=== PATIENT | male | born 1960 | race African-American/Black ===

== ENCOUNTER → 2016-08-22 | Outpatient (CLI) | payer MEDICARE, MEDICAID ==
[2016-08-22 11:09] LABS: ABSOLUTE EOSINOPHILS # (AUTO) 0.2 10^3/uL (0.0-0.6); ABSOLUTE LYMPHOCYTES (AUTO) 1.4 10^3/uL (0.5-4.7); ABSOLUTE MONOCYTES (AUTO) 0.8 10^3/uL (0.1-1.4); BASOPHILS % (AUTO) 0.8 % (0-2); HEMATOCRIT 39.2 % (37.9-51.0); HEMOGLOBIN 13.4 g/dL (13.5-17.0); MEAN CORPUSCULAR HEMOGLOBIN 32.5 pg (27.0-33.4); MEAN CORPUSCULAR HGB CONC 34.2 g/dL (32.0-36.0); MEAN CORPUSCULAR VOLUME 95 fl (80-97); MONOCYTES % (AUTO) 11.7 % (3-13); RED BLOOD COUNT 4.13 10^6/uL (4.35-5.55); RED CELL DISTRIBUTION WIDTH 16.1 % (11.5-14.0); SEGMENTED NEUTROPHILS % (AUTO) 62.5 % (42-78); WHITE BLOOD COUNT 6.4 10^3/uL (4.0-10.5)
[2016-08-22 12:00] LABS: ALANINE AMINOTRANSFERASE 27 U/L (21-72); ALBUMIN 4.4 g/dL (3.5-5.0); ALKALINE PHOSPHATASE 68 U/L (38-126); ANION GAP 17 (5-19); ASPARTATE AMINO TRANSFERASE 25 U/L (17-59); BLOOD UREA NITROGEN 19 mg/dL (7-20); CALCIUM 9.9 mg/dL (8.4-10.2); CARBON DIOXIDE 23 mmol/L (22-30); CHLORIDE 100 mmol/L (98-107); CHOLESTEROL 254.35 mg/dL (0-200); CREATININE RESULT 1.63 mg/dL (0.52-1.25); Direct HDL 67 mg/dL (>40); GLUCOSE 106 mg/dL (75-110); POTASSIUM 4.7 mmol/L (3.6-5.0); SODIUM 139.9 mmol/L (137-145); TOTAL PROTEIN 8.4 g/dL (6.3-8.2); TRIGLYCERIDES 112 mg/dL (<150)
[2016-08-22 12:10] LABS: DIRECT LDL 149 mg/dL (<100)
[2016-08-22 12:34] LABS: BILIRUBIN,TOTAL 0.8 mg/dL (0.2-1.3)
[2016-08-22 12:45] LABS: BILIRUBIN,DIRECT 0.5 mg/dL (0.0-0.4)
== END ==
LOC: OD 09:45
PROVIDERS: ATTEND Internal Medicine
DX: E78.2 Mixed hyperlipidemia (principal); Z13.1 Encounter for screening for diabetes mellitus; Z12.5 Encounter for screening for malignant neoplasm of prostate; E55.9 Vitamin D deficiency, unspecified; E66.9 Obesity, unspecified; Z79.899 Other long term (current) drug therapy
CPT/HCPCS: 36415; 82306; 84443; 85025; 80053; 80061; G0103

== ENCOUNTER → 2017-11-04 | Outpatient (CLI) | payer MEDICARE, MEDICAID ==
--- NOTE | 2017-11-04 15:44 | RADIOLOGY REPORT (SQ) ---
EXAM DESCRIPTION: U/S RETROPERITON (RENAL/AORTA) COMPLETED DATE/TIME: 11/04/2017 2:43 pm REASON FOR STUDY: N18.3 CHRONIC KIDNEY DISEASE, STAGE 3 (MODERATE) N18.3 CHRONIC KIDNEY DISEASE, ST AGE 3 (MODERATE) I12.9 HYPERTENSIVE CHRONIC KIDNEY DISEASE W STG 1-4/UNSP CHR COMPARISON: 03/03/2013 TECHNIQUE: Dynamic and static grayscale images acquired of the kidneys and bladder and recorded on P ACS. Additional selected color Doppler and spectral images recorded. LIMITATIONS: None. FINDINGS: RIGHT KIDNEY: The right kidney measures 10.6 cm, normal size. Normal echogenicity. No ap id or suspicious masses. No hydronephrosis. No calcifications. LEFT KIDNEY: Limited visualization of the left kidney. The left kidney measures 6.8 cm. On the tino or examination it measured 8.0 cm. Normal echogenicity. No solid or suspicious masses. No hydronephr osis. No calcifications. BLADDER: The urinary bladder is incompletely distended. Bilateral ureteral jets demonstrated. OTHER FINDINGS: No other significant finding. IMPRESSION: 1 The right kidney is stable in appearance since the prior examination dated 03/03/2013. No evidence hydronephrosis. 2 Limited visualization of the left kidney. The left kidney is smaller in size on the current examin ation when compared to the prior study, see above. TECHNICAL DOCUMENTATION: JOB ID: [id number] All Rights Reserved Reading location - IP/workstation name: [email or web address]
== END ==
LOC: RAD 17:14
PROVIDERS: ATTEND Internal Medicine Nephrology
DX: I12.9 Hypertensive chronic kidney disease with stage 1 through stage 4 chronic kidney disease, or unspecified chronic kidney disease (principal); N18.3 Chronic kidney disease, stage 3 (moderate)
CPT/HCPCS: 76770

== ENCOUNTER → 2017-11-19 | Outpatient (CLI) | payer MEDICARE, MEDICAID ==
[2017-11-19 13:50] LABS: ABSOLUTE EOSINOPHILS # (AUTO) 0.2 10^3/uL (0.0-0.6); ABSOLUTE LYMPHOCYTES (AUTO) 1.4 10^3/uL (0.5-4.7); ABSOLUTE MONOCYTES (AUTO) 0.9 10^3/uL (0.1-1.4); ABSOLUTE NEUT (AUTO) 4.4 10^3/uL (1.7-8.2); BASOPHILS % (AUTO) 0.6 % (0-2); EOSINOPHILS % (AUTO) 2.6 % (0-6); HEMATOCRIT 38.7 % (37.9-51.0); HEMOGLOBIN 13.1 g/dL (13.5-17.0); LYMPHOCYTES % (AUTO) 19.8 % (13-45); MEAN CORPUSCULAR HEMOGLOBIN 31.7 pg (27.0-33.4); MEAN CORPUSCULAR VOLUME 93 fl (80-97); MONOCYTES % (AUTO) 12.8 % (3-13); PLATELET COUNT 240 10^3/uL (150-450); RED BLOOD COUNT 4.14 10^6/uL (4.35-5.55); RED CELL DISTRIBUTION WIDTH 15.9 % (11.5-14.0); SEGMENTED NEUTROPHILS % (AUTO) 64.2 % (42-78); TOTAL CELLS COUNTED % (AUTO) 100 %; WHITE BLOOD COUNT 6.9 10^3/uL (4.0-10.5)
[2017-11-19 13:56] LABS: APPEARANCE,URINE SLIGHTLY-CLOUDY; BILIRUBIN,URINE NEGATIVE (NEGATIVE); COLOR,URINE YELLOW; GLUCOSE, URINE NEGATIVE (NEGATIVE); KETONES,URINE NEGATIVE (NEGATIVE); LEUKOCYTE ESTERASE,URINE NEGATIVE (NEGATIVE); NITRITE,URINE NEGATIVE (NEGATIVE); PROTEIN,URINE NEGATIVE (NEGATIVE); URINE SPECIFIC GRAVITY 1.003; UROBILINOGEN,URINE NEGATIVE mg/dL (<2.0)
[2017-11-19 13:59] LABS: ALANINE AMINOTRANSFERASE 32 U/L (21-72); ALBUMIN 4.6 g/dL (3.5-5.0); ALKALINE PHOSPHATASE 71 U/L (38-126); ANION GAP 16 (5-19); ASPARTATE AMINO TRANSFERASE 41 U/L (17-59); BILIRUBIN,DIRECT 0.3 mg/dL (0.0-0.4); BILIRUBIN,TOTAL 0.7 mg/dL (0.2-1.3); BLOOD UREA NITROGEN 12 mg/dL (7-20); CARBON DIOXIDE 25 mmol/L (22-30); CHLORIDE 98 mmol/L (98-107); GLUCOSE 91 mg/dL (75-110); POTASSIUM 4.4 mmol/L (3.6-5.0); SODIUM 139.2 mmol/L (137-145); TOTAL PROTEIN 8.5 g/dL (6.3-8.2)
== END ==
LOC: OD 13:19
PROVIDERS: ATTEND Internal Medicine Nephrology
DX: I12.9 Hypertensive chronic kidney disease with stage 1 through stage 4 chronic kidney disease, or unspecified chronic kidney disease (principal); N18.3 Chronic kidney disease, stage 3 (moderate)
CPT/HCPCS: 36415; 80053; 81001; 83735; 85025

== ENCOUNTER → 2018-01-24 | Outpatient (CLI) | payer MEDICARE, MEDICAID ==
[2018-01-24 14:40] LABS: HEMATOCRIT 43.3 % (37.9-51.0); HEMOGLOBIN 14.9 g/dL (13.5-17.0); MEAN CORPUSCULAR HEMOGLOBIN 32.4 pg (27.0-33.4); MEAN CORPUSCULAR HGB CONC 34.4 g/dL (32.0-36.0); MEAN CORPUSCULAR VOLUME 94 fl (80-97); PLATELET COUNT 253 10^3/uL (150-450); RED BLOOD COUNT 4.59 10^6/uL (4.35-5.55); RED CELL DISTRIBUTION WIDTH 15.5 % (11.5-14.0); WHITE BLOOD COUNT 5.7 10^3/uL (4.0-10.5)
[2018-01-24 15:01] LABS: APPEARANCE,URINE CLEAR; BILIRUBIN,URINE NEGATIVE (NEGATIVE); COLOR,URINE YELLOW; GLUCOSE, URINE 50 mg/dL (NEGATIVE); KETONES,URINE NEGATIVE (NEGATIVE); LEUKOCYTE ESTERASE,URINE TRACE (NEGATIVE); NITRITE,URINE NEGATIVE (NEGATIVE); PROTEIN,URINE NEGATIVE (NEGATIVE)
[2018-01-24 15:20] LABS: ANION GAP 10 (5-19); BLOOD UREA NITROGEN 11 mg/dL (7-20); CALCIUM 10.1 mg/dL (8.4-10.2); CARBON DIOXIDE 27 mmol/L (22-30); CHLORIDE 98 mmol/L (98-107); GLUCOSE 147 mg/dL (75-110); POTASSIUM 4.7 mmol/L (3.6-5.0); SODIUM 134.6 mmol/L (137-145)
== END ==
LOC: OD 13:49
PROVIDERS: ATTEND Internal Medicine Nephrology
DX: I12.9 Hypertensive chronic kidney disease with stage 1 through stage 4 chronic kidney disease, or unspecified chronic kidney disease (principal); N18.3 Chronic kidney disease, stage 3 (moderate)
CPT/HCPCS: 36415; 80048; 81001; 85027

== ENCOUNTER → 2018-07-24 | Outpatient (CLI) | payer MEDICARE, MEDICAID ==
[2018-07-24 12:32] LABS: HEMATOCRIT 39.7 % (37.9-51.0); HEMOGLOBIN 13.5 g/dL (13.5-17.0); MEAN CORPUSCULAR HEMOGLOBIN 31.8 pg (27.0-33.4); MEAN CORPUSCULAR VOLUME 94 fl (80-97); PLATELET COUNT 271 10^3/uL (150-450); RED BLOOD COUNT 4.24 10^6/uL (4.35-5.55); RED CELL DISTRIBUTION WIDTH 15.5 % (11.5-14.0); WHITE BLOOD COUNT 8.3 10^3/uL (4.0-10.5)
[2018-07-24 12:46] LABS: APPEARANCE,URINE CLEAR; BILIRUBIN,URINE NEGATIVE (NEGATIVE); COLOR,URINE YELLOW; GLUCOSE, URINE NEGATIVE (NEGATIVE); KETONES,URINE NEGATIVE (NEGATIVE); LEUKOCYTE ESTERASE,URINE NEGATIVE (NEGATIVE); NITRITE,URINE NEGATIVE (NEGATIVE); PROTEIN,URINE NEGATIVE (NEGATIVE); URINE SPECIFIC GRAVITY 1.017
[2018-07-24 13:00] LABS: ANION GAP 12 (5-19); BLOOD UREA NITROGEN 21 mg/dL (7-20); CALCIUM 10.3 mg/dL (8.4-10.2); CARBON DIOXIDE 24 mmol/L (22-30); CHLORIDE 101 mmol/L (98-107); GLUCOSE 98 mg/dL (75-110); POTASSIUM 4.7 mmol/L (3.6-5.0); SODIUM 137.4 mmol/L (137-145)
== END ==
LOC: OD 11:20
PROVIDERS: ATTEND Physician Assistant Medical
DX: I12.9 Hypertensive chronic kidney disease with stage 1 through stage 4 chronic kidney disease, or unspecified chronic kidney disease (principal); N18.3 Chronic kidney disease, stage 3 (moderate); E87.1 Hypo-osmolality and hyponatremia
CPT/HCPCS: 36415; 80048; 81001; 85027

== ENCOUNTER → 2019-01-29 | Outpatient (CLI) | payer MEDICARE, MEDICAID ==
[2019-01-29 11:20] LABS: ABSOLUTE BASOPHILS # (AUTO) 0.1 10^3/uL (0.0-0.2); ABSOLUTE EOSINOPHILS # (AUTO) 0.1 10^3/uL (0.0-0.6); ABSOLUTE LYMPHOCYTES (AUTO) 1.5 10^3/uL (0.5-4.7); ABSOLUTE MONOCYTES (AUTO) 0.6 10^3/uL (0.1-1.4); ABSOLUTE NEUT (AUTO) 3.9 10^3/uL (1.7-8.2); BASOPHILS % (AUTO) 0.9 % (0-2); EOSINOPHILS % (AUTO) 1.4 % (0-6); HEMATOCRIT 43.7 % (37.9-51.0); HEMOGLOBIN 14.7 g/dL (13.5-17.0); LYMPHOCYTES % (AUTO) 23.9 % (13-45); MEAN CORPUSCULAR HEMOGLOBIN 31.7 pg (27.0-33.4); MEAN CORPUSCULAR HGB CONC 33.7 g/dL (32.0-36.0); MEAN CORPUSCULAR VOLUME 94 fl (80-97); PLATELET COUNT 239 10^3/uL (150-450); RED BLOOD COUNT 4.64 10^6/uL (4.35-5.55); RED CELL DISTRIBUTION WIDTH 15.2 % (11.5-14.0); SEGMENTED NEUTROPHILS % (AUTO) 63.8 % (42-78); TOTAL CELLS COUNTED % (AUTO) 100 %; WHITE BLOOD COUNT 6.2 10^3/uL (4.0-10.5)
[2019-01-29 11:52] LABS: ALBUMIN 4.7 g/dL (3.5-5.0); ALKALINE PHOSPHATASE 61 U/L (38-126); ANION GAP 15 (5-19); ASPARTATE AMINO TRANSFERASE 24 U/L (17-59); BILIRUBIN,DIRECT 0.2 mg/dL (0.0-0.4); BILIRUBIN,TOTAL 0.5 mg/dL (0.2-1.3); BLOOD UREA NITROGEN 12 mg/dL (7-20); CALCIUM 10.2 mg/dL (8.4-10.2); CARBON DIOXIDE 23 mmol/L (22-30); CHLORIDE 99 mmol/L (98-107); CHOLESTEROL 156.43 mg/dL (0-200); GLUCOSE 98 mg/dL (75-110); POTASSIUM 5.1 mmol/L (3.6-5.0); TOTAL PROTEIN 8.3 g/dL (6.3-8.2); TRIGLYCERIDES 125 mg/dL (<150)
[2019-01-29 12:12] LABS: DIRECT LDL 81 mg/dL (<100)
[2019-01-30 10:45] LABS: PROSTATE SPECIFIC ANTIGEN 0.4 ng/mL (0.0-4.0); PSA % FREE 52.5 % (.); PSA FREE 0.21 ng/mL
== END ==
LOC: OD 10:19
PROVIDERS: ATTEND Internal Medicine
DX: I12.9 Hypertensive chronic kidney disease with stage 1 through stage 4 chronic kidney disease, or unspecified chronic kidney disease (principal); N18.3 Chronic kidney disease, stage 3 (moderate); E55.9 Vitamin D deficiency, unspecified; E78.5 Hyperlipidemia, unspecified; Z12.5 Encounter for screening for malignant neoplasm of prostate; E66.9 Obesity, unspecified
CPT/HCPCS: 36415; 80053; 80061; 82306; 84154; 84443; 85025

== ENCOUNTER → 2019-02-03 | Outpatient (CLI) | payer MEDICARE, MEDICAID ==
[2019-02-03 10:52] LABS: HEMATOCRIT 42.3 % (37.9-51.0); MEAN CORPUSCULAR HEMOGLOBIN 30.9 pg (27.0-33.4); MEAN CORPUSCULAR HGB CONC 33.1 g/dL (32.0-36.0); MEAN CORPUSCULAR VOLUME 93 fl (80-97); PLATELET COUNT 229 10^3/uL (150-450); RED BLOOD COUNT 4.53 10^6/uL (4.35-5.55); RED CELL DISTRIBUTION WIDTH 15.3 % (11.5-14.0); WHITE BLOOD COUNT 5.2 10^3/uL (4.0-10.5)
[2019-02-03 11:10] LABS: APPEARANCE,URINE CLEAR; BILIRUBIN,URINE NEGATIVE (NEGATIVE); COLOR,URINE YELLOW; GLUCOSE, URINE NEGATIVE (NEGATIVE); KETONES,URINE NEGATIVE (NEGATIVE); LEUKOCYTE ESTERASE,URINE NEGATIVE (NEGATIVE); NITRITE,URINE NEGATIVE (NEGATIVE); PROTEIN,URINE NEGATIVE (NEGATIVE); URINE SPECIFIC GRAVITY 1.008; UROBILINOGEN,URINE NEGATIVE mg/dL (<2.0)
[2019-02-03 11:43] LABS: ANION GAP 10 (5-19); BLOOD UREA NITROGEN 17 mg/dL (7-20); CALCIUM 10.3 mg/dL (8.4-10.2); CARBON DIOXIDE 27 mmol/L (22-30); CHLORIDE 98 mmol/L (98-107); GLUCOSE 105 mg/dL (75-110); PHOSPHORUS 4.4 mg/dL (2.5-4.5); POTASSIUM 5.5 mmol/L (3.6-5.0)
== END ==
LOC: OD 10:13
PROVIDERS: ATTEND Physician Assistant Medical
DX: N18.3 Chronic kidney disease, stage 3 (moderate) (principal); I12.9 Hypertensive chronic kidney disease with stage 1 through stage 4 chronic kidney disease, or unspecified chronic kidney disease; E83.51 Hypocalcemia; E87.5 Hyperkalemia; E87.1 Hypo-osmolality and hyponatremia
CPT/HCPCS: 36415; 80048; 81001; 83970; 84100; 84132; 85027

== ENCOUNTER 2019-05-28 09:44 | Emergency (ER) | payer MEDICARE, MEDICAID ==
[2019-05-28] MEDS ORDERED: TETRACAINE HCL 0.5% OPH SOLN 4 ML OS ONE (10:20)
--- NOTE | 2019-05-28 10:20 | ER Document Report ---
ED Medical Screen (RME) - General Chief Complaint: Eye Pain Stated Complaint: EYE PAIN Time Seen by Provider: 05/28/19 10:15 Primary Care Provider: VARUN BLUM PA-C [Primary Care Provider] - Follow up as needed Mode of Arrival: Ambulatory Information source: Patient Notes: 58-year-old male presented to ED for complaint of eye pain to the left eye. He states it started on Saturday he thought it was getting better but then he started getting much worse. He states it is burning and pain. He states he has not injured this eye. Smokes 1/2 pack a day drinks daily and no drugs. I have greeted and performed a rapid initial assessment of this patient. A comprehensive ED assessment and evaluation of the patient, analysis of test results and completion of medical decision making process will be conducted by an additional ED providers. TRAVEL OUTSIDE OF THE [place] IN LAST 30 DAYS: No - Related Data Allergies/Adverse Reactions: No Known Allergies Allergy (Unverified 07/05/11 07:31) Past Medical History - Past Medical History Cardiac Medical History: Reports: Hx Coronary Artery Disease, Hx Hypertension, Hx Heart Murmur Denies: Hx Atrial Fibrillation, Hx Congestive Heart Failure, Hx Heart Attack, Hx Hypercholesterolemia, Hx Peripheral Vascular Disease Pulmonary Medical History: Denies: Hx Tuberculosis Endocrine Medical History: Denies: Hx Diabetes Mellitus Type 2 Renal/ Medical History: Denies: Hx Peritoneal Dialysis Past Surgical History: Reports: Hx Cardiac Catheterization, Hx Cardiac Surgery - CABG in 2010, Hx Coronary Artery Bypass Graft, Hx Testicular Surgery, Hx Vascular Surgery - DVT removal. Denies: Hx Appendectomy, Hx Bowel Surgery, Hx Cholecystectomy, Hx Gastric Bypass Surgery, Hx Herniorrhaphy, Hx Pacemaker, Hx Tonsillectomy - Immunizations Immunizations up to date: No Hx Diphtheria, Pertussis, Tetanus Vaccination: Yes Physical Exam - Vital signs Vitals: Temp Pulse Resp BP Pulse Ox 97.8 F 87 16 143/89 H 98 05/28/19 09:46 05/28/19 09:46 05/28/19 09:46 05/28/19 09:46 05/28/19 09:46 Course - Vital Signs Vital signs: Temp Pulse Resp BP Pulse Ox 97.8 F 87 16 143/89 H 98 05/28/19 09:46 05/28/19 09:46 05/28/19 09:46 05/28/19 09:46 05/28/19 09:46 Doctor's Discharge - Discharge Referrals: VARUN BLUM PA-C [Primary Care Provider] - Follow up as needed
--- NOTE | 2019-05-28 13:17 | ER Document Report ---
ED General - General Chief Complaint: Redness of Eye Stated Complaint: EYE PAIN Time Seen by Provider: 05/28/19 10:15 Primary Care Provider: CHAU VENTURA OT [OPTHALMIC LOADER HELPER] - Follow up as needed JOSE ISABEL DO [ACTIVE STAFF] - Follow up as needed VARUN BLUM PA-C [Primary Care Provider] - Follow up as needed Mode of Arrival: Ambulatory Notes: 58-year male presents left eye redness and discomfort, without blurry vision with increased discharge, for several days. No trauma. No proptosis. No visual impairment or headache or fever. No history of eye issues. Patient is recently poor historian but based on conversation can obtain the above information. Seen at triage, ordered visual acuity. TRAVEL OUTSIDE OF THE [place] IN LAST 30 DAYS: No - Related Data Allergies/Adverse Reactions: No Known Allergies Allergy (Verified 05/28/19 10:17) Home Medications: xarelto, htn, hchol Past Medical History - General Information source: Patient - Social History Smoking Status: Current Every Day Smoker Chew tobacco use (# tins/day): No Frequency of alcohol use: daily Drug Abuse: None Family History: Reviewed & Not Pertinent, Malignancy Patient has suicidal ideation: No Patient has homicidal ideation: No - Past Medical History Cardiac Medical History: Reports: Hx Coronary Artery Disease, Hx Hypertension, Hx Heart Murmur Denies: Hx Atrial Fibrillation, Hx Congestive Heart Failure, Hx Heart Attack, Hx Hypercholesterolemia, Hx Peripheral Vascular Disease Pulmonary Medical History: Denies: Hx Tuberculosis Endocrine Medical History: Denies: Hx Diabetes Mellitus Type 2 Renal/ Medical History: Denies: Hx Peritoneal Dialysis Past Surgical History: Reports: Hx Cardiac Catheterization, Hx Cardiac Surgery - CABG in 2010, Hx Coronary Artery Bypass Graft, Hx Testicular Surgery, Hx Vascular Surgery - DVT removal. Denies: Hx Appendectomy, Hx Bowel Surgery, Hx Cholecystectomy, Hx Gastric Bypass Surgery, Hx Herniorrhaphy, Hx Pacemaker, Hx Tonsillectomy - Immunizations Immunizations up to date: No Hx Diphtheria, Pertussis, Tetanus Vaccination: Yes Hx Pneumococcal Vaccination: 04/22/10 Review of Systems - Review of Systems Notes: REVIEW OF SYSTEMS GEN: Denies fever, chills, weight loss ENT: Denies sore throat, nasal discharge, ear pain EYES: PI CV: Denies chest pain, palpitations, edema RESP: Denies cough, shortness of breath, wheezing GI: Denies abdominal pain, nausea, vomiting, diarrhea MSK: Denies joint pain/swelling, edema, SKIN: Denies rash, skin lesions LYMPH: Denies swollen glands/lymph nodes NEURO: Denies headache, focal weakness or numbness, dizziness PSYCH: Denies depression, suicidal or homicidal ideation PHYSICAL EXAMINATION General: No acute distress, well-nourished Head: Atraumatic, normocephalic ENT: Mouth normal, oropharynx moist, no exudates or tonsillar enlargement Eyes: Conjunctiva on the left with mild discharge, painless full extraocular movements no afferent pupillary defect, the eye is nontender to palpation Neck: No JVD, supple, no guarding CVS: Normal rate, regular rhythm, no murmurs Resp: No resp distress, equal and normal breath sounds bilaterally GI: Nondistended, soft, no tenderness to palpation, no rebound or guarding Ext: No deformities, no edema, normal range of motion in upper and lower ext Back: No CVA or midline TTP Skin: No rash, warm Lymphatic: No lymphadeopathy noted Neuro: Awake, alert. Face symmetric. GCS 15. Physical Exam - Vital signs Vitals: Temp Pulse Resp BP Pulse Ox 97.8 F 87 16 143/89 H 98 05/28/19 09:46 05/28/19 09:46 05/28/19 09:46 05/28/19 09:46 05/28/19 09:46 - HEENT Visual acuity- Right eye: 20/20 Visual acuity- Left eye: 20/20 Visual acuity- Both eyes: 20/20 Corrective lenses worn: No Course - Re-evaluation Re-evalutation: 05/28/19 14:04 Eye redness with intact range of motion normal cornea. Patient intolerant of Franki-Pen I tried several times and cannot measure his pressure but he has no proptosis or history of glaucoma His pain improved with drops but he has no uptake of fluorescein given to treat conjunctivitis although there may be a more underlying issue and he will be referred to ophthalmology expeditiously. I have discussed with the patient there likely diagnosis, aftercare plan, follow-up plans and my usual and customary return precautions. They verbalized understanding of this. - Vital Signs Vital signs: Temp Pulse Resp BP Pulse Ox 97.8 F 87 16 143/89 H 98 05/28/19 09:46 05/28/19 09:46 05/28/19 09:46 05/28/19 09:46 05/28/19 09:46 Discharge - Discharge Clinical Impression: Conjunctivitis Qualifiers: Conjunctivitis type: other Laterality: left Qualified Code(s): H10.89 - Other conjunctivitis Condition: Good Disposition: HOME, SELF-CARE Instructions: Antibiotic Therapy ([facility]), Conjunctivitis ([facility]) Prescriptions: Polymyxin B Sulf/Trimethoprim [Polytrim Eye Drops] 1 drop OD Q3H #10 ml Referrals: VARUN BLUM PA-C [Primary Care Provider] - Follow up as needed CHAU VENTURA OT [OPTHALMIC LOADER HELPER] - Follow up as needed JOSE ISABEL DO [ACTIVE STAFF] - Follow up as needed
[2019-05-28 14:24] VITALS: BP 128/82
== END 2019-05-28 14:25 | disposition home or self-care (01) ==
LOC: ER 09:44
DX: H10.89 Other conjunctivitis (principal); F17.200 Nicotine dependence, unspecified, uncomplicated; I25.10 Atherosclerotic heart disease of native coronary artery without angina pectoris; I10 Essential (primary) hypertension; Z95.1 Presence of aortocoronary bypass graft
CPT/HCPCS: J3490

== ENCOUNTER → 2019-09-29 | Outpatient (CLI) | payer MEDICARE, MEDICAID ==
[2019-09-29 13:54] LABS: ABSOLUTE EOSINOPHILS # (AUTO) 0.1 10^3/uL (0.0-0.6); ABSOLUTE LYMPHOCYTES (AUTO) 1.3 10^3/uL (0.5-4.7); ABSOLUTE MONOCYTES (AUTO) 0.8 10^3/uL (0.1-1.4); BASOPHILS % (AUTO) 0.7 % (0-2); EOSINOPHILS % (AUTO) 1.7 % (0-6); HEMATOCRIT 38.2 % (37.9-51.0); HEMOGLOBIN 13.1 g/dL (13.5-17.0); LYMPHOCYTES % (AUTO) 20.4 % (13-45); MEAN CORPUSCULAR HEMOGLOBIN 32.5 pg (27.0-33.4); MEAN CORPUSCULAR HGB CONC 34.3 g/dL (32.0-36.0); MEAN CORPUSCULAR VOLUME 95 fl (80-97); MONOCYTES % (AUTO) 12.9 % (3-13); PLATELET COUNT 257 10^3/uL (150-450); RED BLOOD COUNT 4.04 10^6/uL (4.35-5.55); RED CELL DISTRIBUTION WIDTH 15.2 % (11.5-14.0); SEGMENTED NEUTROPHILS % (AUTO) 64.3 % (42-78); TOTAL CELLS COUNTED % (AUTO) 100 %; WHITE BLOOD COUNT 6.2 10^3/uL (4.0-10.5)
[2019-09-29 13:57] LABS: APPEARANCE,URINE CLEAR; BILIRUBIN,URINE NEGATIVE (NEGATIVE); COLOR,URINE YELLOW; GLUCOSE, URINE NEGATIVE (NEGATIVE); KETONES,URINE NEGATIVE (NEGATIVE); LEUKOCYTE ESTERASE,URINE NEGATIVE (NEGATIVE); NITRITE,URINE NEGATIVE (NEGATIVE); PROTEIN,URINE NEGATIVE (NEGATIVE); UROBILINOGEN,URINE NEGATIVE mg/dL (<2.0)
[2019-09-29 14:14] LABS: ALBUMIN 4.6 g/dL (3.5-5.0); ANION GAP 10 (5-19); BLOOD UREA NITROGEN 17 mg/dL (7-20); CALCIUM 9.6 mg/dL (8.4-10.2); CARBON DIOXIDE 25 mmol/L (22-30); CHLORIDE 92 mmol/L (98-107); GLUCOSE 97 mg/dL (75-110); PHOSPHORUS 4.1 mg/dL (2.5-4.5); POTASSIUM 4.7 mmol/L (3.6-5.0)
== END ==
LOC: OD 13:27
PROVIDERS: ATTEND Physician Assistant Medical
DX: I12.9 Hypertensive chronic kidney disease with stage 1 through stage 4 chronic kidney disease, or unspecified chronic kidney disease (principal); N18.3 Chronic kidney disease, stage 3 (moderate); E87.1 Hypo-osmolality and hyponatremia; E83.52 Hypercalcemia
CPT/HCPCS: 36415; 80069; 81001; 83970; 85025

== ENCOUNTER 2019-09-30 16:12 | Observation (INO) | payer MEDICARE, MEDICAID ==
--- NOTE | 2019-09-30 17:21 | ER Document Report ---
ED Medical Screen (RME) - General Chief Complaint: Weakness Stated Complaint: WEAKNESS Time Seen by Provider: 09/30/19 17:16 Primary Care Provider: VARUN BLUM PA-C [Primary Care Provider] - Follow up as needed Mode of Arrival: Ambulatory Information source: Patient Notes: 59-year-old male presented to ED per MDs return instructions. He states they were told him that he had a low sodium and need to come her to the emergency room. He is alert oriented respirations regular and unlabored speaking in full sentences. He does have a history of kidney problems and [place] with coronary artery disease. He has had a CABG in the past. He does have high blood pressure and cholesterol. He had knee surgery for fractured patella and has had blood clots in both legs. He is alert oriented respirations regular and unlabored speaking in full sentences. States he does not use any illicit drugs but he does smoke 1/2 pack a day and drinks beer several a day. I have greeted and performed a rapid initial assessment of this patient. A comprehensive ED assessment and evaluation of the patient, analysis of test results and completion of medical decision making process will be conducted by an additional ED providers. TRAVEL OUTSIDE OF THE [place] IN LAST 30 DAYS: No - Related Data Allergies/Adverse Reactions: No Known Allergies Allergy (Verified 05/28/19 10:17) Past Medical History - Past Medical History Cardiac Medical History: Reports: Hx Coronary Artery Disease, Hx Hypertension, Hx Heart Murmur Denies: Hx Atrial Fibrillation, Hx Congestive Heart Failure, Hx Heart Attack, Hx Hypercholesterolemia, Hx Peripheral Vascular Disease Pulmonary Medical History: Denies: Hx Tuberculosis Endocrine Medical History: Denies: Hx Diabetes Mellitus Type 2 Renal/ Medical History: Denies: Hx Peritoneal Dialysis Past Surgical History: Reports: Hx Cardiac Catheterization, Hx Cardiac Surgery - CABG in 2010, Hx Coronary Artery Bypass Graft, Hx Testicular Surgery, Hx Vascular Surgery - DVT removal. Denies: Hx Appendectomy, Hx Bowel Surgery, Hx Cholecystectomy, Hx Gastric Bypass Surgery, Hx Herniorrhaphy, Hx Pacemaker, Hx Tonsillectomy - Immunizations Immunizations up to date: No Hx Diphtheria, Pertussis, Tetanus Vaccination: Yes Physical Exam - Vital signs Vitals: Temp Pulse Resp BP Pulse Ox 97.9 F 77 16 132/82 H 100 09/30/19 16:17 09/30/19 16:17 09/30/19 16:17 09/30/19 16:17 09/30/19 16:17 Course - Vital Signs Vital signs: Temp Pulse Resp BP Pulse Ox 97.9 F 77 16 132/82 H 100 09/30/19 16:17 09/30/19 16:17 09/30/19 16:17 09/30/19 16:17 09/30/19 16:17 Doctor's Discharge - Discharge Referrals: VARUN BLUM PA-C [Primary Care Provider] - Follow up as needed
[2019-09-30 18:25] LABS: APPEARANCE,URINE CLEAR; BILIRUBIN,URINE NEGATIVE (NEGATIVE); COLOR,URINE STRAW; GLUCOSE, URINE NEGATIVE (NEGATIVE); KETONES,URINE NEGATIVE (NEGATIVE); LEUKOCYTE ESTERASE,URINE NEGATIVE (NEGATIVE); NITRITE,URINE NEGATIVE (NEGATIVE); PROTEIN,URINE NEGATIVE (NEGATIVE); URINE SPECIFIC GRAVITY 1.005; UROBILINOGEN,URINE NEGATIVE mg/dL (<2.0)
[2019-09-30 18:44] LABS: ALBUMIN 4.6 g/dL (3.5-5.0); ALKALINE PHOSPHATASE 49 U/L (38-126); ANION GAP 14 (5-19); ASPARTATE AMINO TRANSFERASE 28 U/L (17-59); BILIRUBIN,TOTAL 0.6 mg/dL (0.2-1.3); BLOOD UREA NITROGEN 15 mg/dL (7-20); CALCIUM 9.5 mg/dL (8.4-10.2); CARBON DIOXIDE 21 mmol/L (22-30); CHLORIDE 90 mmol/L (98-107); GLUCOSE 77 mg/dL (75-110); POTASSIUM 4.3 mmol/L (3.6-5.0); TOTAL PROTEIN 8.3 g/dL (6.3-8.2)
[2019-09-30] MEDS ORDERED: NORMAL SALINE 1000 ML 1,000 ML IV ONE (20:19)
--- NOTE | 2019-09-30 20:24 | ER Document Report ---
ED General - General Chief Complaint: Abnormal Lab Results Stated Complaint: WEAKNESS Time Seen by Provider: 09/30/19 17:16 Primary Care Provider: VARUN BLUM PA-C [Primary Care Provider] - Follow up as needed Mode of Arrival: Ambulatory Notes: Patient is a 59-year-old -[place] male with a past medical history of DVT, hypertension and chronic kidney disease who was sent here by his assistant professor of education for low sodium. Patient states he is asymptomatic. He had routine blood work 2 days ago that showed a sodium of 126. He was sent here for evaluation and repeat. Patient denies any history of low sodium. TRAVEL OUTSIDE OF THE [place] IN LAST 30 DAYS: No - Related Data Allergies/Adverse Reactions: No Known Allergies Allergy (Verified 09/30/19 17:20) Past Medical History - General Information source: Patient - Social History Smoking Status: Current Every Day Smoker Frequency of alcohol use: Heavy Drug Abuse: None Family History: Reviewed & Not Pertinent, Malignancy Patient has homicidal ideation: No - Past Medical History Cardiac Medical History: Reports: Hx Coronary Artery Disease, Hx Hypertension, Hx Heart Murmur Denies: Hx Atrial Fibrillation, Hx Congestive Heart Failure, Hx Heart Attack, Hx Hypercholesterolemia, Hx Peripheral Vascular Disease Pulmonary Medical History: Denies: Hx Tuberculosis Endocrine Medical History: Denies: Hx Diabetes Mellitus Type 2 Renal/ Medical History: Denies: Hx Peritoneal Dialysis Past Surgical History: Reports: Hx Cardiac Catheterization, Hx Cardiac Surgery - CABG in 2010, Hx Coronary Artery Bypass Graft, Hx Testicular Surgery, Hx Vascular Surgery - DVT removal. Denies: Hx Appendectomy, Hx Bowel Surgery, Hx Cholecystectomy, Hx Gastric Bypass Surgery, Hx Herniorrhaphy, Hx Pacemaker, Hx Tonsillectomy - Immunizations Immunizations up to date: No Hx Diphtheria, Pertussis, Tetanus Vaccination: Yes Hx Pneumococcal Vaccination: 04/22/10 Review of Systems - Review of Systems Constitutional: No symptoms reported EENT: No symptoms reported Cardiovascular: No symptoms reported Respiratory: No symptoms reported Gastrointestinal: No symptoms reported Genitourinary: No symptoms reported Male Genitourinary: No symptoms reported Musculoskeletal: No symptoms reported Skin: No symptoms reported Neurological/Psychological: No symptoms reported Physical Exam - Vital signs Vitals: Temp 97.9 F 09/30/19 16:13 - General General appearance: Appears well, Alert In distress: None - HEENT Head: Normocephalic, Atraumatic Eyes: Normal Pupils: PERRL - Respiratory Respiratory status: No respiratory distress Chest status: Nontender Breath sounds: Normal Chest palpation: Normal - Cardiovascular Rhythm: Regular Heart sounds: Normal auscultation - Abdominal Inspection: Normal Distension: No distension Bowel sounds: Normal Tenderness: Nontender Organomegaly: No organomegaly - Extremities General upper extremity: Nontender. No: Tender, Edema General lower extremity: Normal inspection, Nontender. No: Tender, Edema - Neurological Neuro grossly intact: Yes Cognition: Normal Orientation: AAOx4 [place] Coma Scale Eye Opening: Spontaneous Vanda Coma Scale Verbal: Oriented Vanda Coma Scale Motor: Obeys Commands Vanda Coma Scale Total: 15 Speech: Normal Motor strength normal: LUE, RUE, LLE, RLE Sensory: Normal - Psychological Associated symptoms: Normal affect, Normal mood - Skin Skin Temperature: Warm Skin Moisture: Dry Skin Color: Normal Course - Re-evaluation Re-evalutation: 09/30/19 23:12 Patient admitted to some mild fatigue/generalized weakness. Is otherwise stable. Tolerating oral intake well. Sodium was minimally responsive to fluids. Spoke with hospitalist, Dr. Landis who will admit the patient for observation on telemetry. - Vital Signs Vital signs: Temp Pulse Resp BP Pulse Ox 97.9 F 77 15 130/75 H 100 09/30/19 16:17 09/30/19 16:17 09/30/19 19:52 09/30/19 19:53 09/30/19 19:53 - Laboratory Result Diagrams: 09/30/19 19:52 09/30/19 21:52 Laboratory results interpreted by me: 09/30/19 09/30/19 09/30/19 17:55 19:52 21:52 RBC 3.72 L Hgb 12.1 L Hct 35.3 L RDW 14.8 H Sodium 124.7 L 126.0 L Chloride 90 L 94 L Carbon Dioxide 21 L Creatinine 1.36 H 1.31 H Est GFR (MDRD) Non-Af 53 L 56 L Glucose 68 L Total Protein 8.3 H Discharge - Discharge Clinical Impression: Hyponatremia, Generalized weakness Condition: Stable Disposition: ADMITTED OBSERVATION Admitting Provider: Boby (Hospitalist) Unit Admitted: Telemetry Referrals: VARUN BLUM PA-C [Primary Care Provider] - Follow up as needed
[2019-09-30 20:53] LABS: ABSOLUTE EOSINOPHILS # (AUTO) 0.1 10^3/uL (0.0-0.6); ABSOLUTE LYMPHOCYTES (AUTO) 1.6 10^3/uL (0.5-4.7); ABSOLUTE MONOCYTES (AUTO) 0.7 10^3/uL (0.1-1.4); ABSOLUTE NEUT (AUTO) 3.8 10^3/uL (1.7-8.2); BASOPHILS % (AUTO) 0.5 % (0-2); HEMATOCRIT 35.3 % (37.9-51.0); HEMOGLOBIN 12.1 g/dL (13.5-17.0); LYMPHOCYTES % (AUTO) 26.1 % (13-45); MEAN CORPUSCULAR HEMOGLOBIN 32.5 pg (27.0-33.4); MEAN CORPUSCULAR HGB CONC 34.3 g/dL (32.0-36.0); MEAN CORPUSCULAR VOLUME 95 fl (80-97); MONOCYTES % (AUTO) 11.3 % (3-13); PLATELET COUNT 228 10^3/uL (150-450); RED BLOOD COUNT 3.72 10^6/uL (4.35-5.55); RED CELL DISTRIBUTION WIDTH 14.8 % (11.5-14.0); SEGMENTED NEUTROPHILS % (AUTO) 60.1 % (42-78); TOTAL CELLS COUNTED % (AUTO) 100 %; WHITE BLOOD COUNT 6.3 10^3/uL (4.0-10.5)
[2019-09-30 22:22] LABS: ANION GAP 9 (5-19); BLOOD UREA NITROGEN 13 mg/dL (7-20); CALCIUM 8.8 mg/dL (8.4-10.2); CARBON DIOXIDE 23 mmol/L (22-30); CHLORIDE 94 mmol/L (98-107); POTASSIUM 3.8 mmol/L (3.6-5.0)
[2019-09-30 22:28] LABS: GLUCOSE 68 mg/dL (75-110)
[2019-09-30] MEDS ORDERED: ACETAMINOPHEN 325 MG TABLET PO PRN (23:13)
[2019-09-30] MEDS ORDERED: MAG HYDROX/AL HYDROX/SIMETH SUSP 30 ML UDCUP PO PRN (23:13)
[2019-09-30] MEDS ORDERED: DEXTROSE 40% GEL 15 GM TUBE PO PRN ×2 (23:55)
[2019-09-30] MEDS ORDERED: DEXTROSE 50%-WATER 25 GM/50 ML DISP.SYRIN IV PRN ×2 (23:55)
[2019-09-30] MEDS ORDERED: GLUCAGON,HUMAN RECOMB 1 MG INJ IM PRN (23:55)
[2019-09-30] MEDS ORDERED: LORAZEPAM INJ 2 MG/1 ML VIAL IV PRN (23:56)
[2019-10-01] MEDS ORDERED: THIAMINE HCL INJ 200 MG/2 ML VIAL IV PRN (00:18)
[2019-10-01] MEDS ORDERED: FOLIC ACID INJ 5 MG/1 ML 10 ML VIAL IV PRN (00:18)
[2019-10-01] MEDS ORDERED: THIAMINE HCL 100 MG, FOLIC ACID 1 MG in NORMAL SALINE 250 ML IV ONE (00:30)
[2019-10-01] MEDS ORDERED: FOLIC ACID INJ 5 MG/1 ML 10 ML VIAL ONE (02:08)
[2019-10-01] MEDS ORDERED: THIAMINE HCL INJ 200 MG/2 ML VIAL ONE (02:09)
--- NOTE | 2019-10-01 04:29 | PDOC H&P ---
History of Present Illness Admission Date/PCP: 09/30/19 22:35 VARUN BLUM PA-C Patient complains of: Weakness and abnormal labs History of Present Illness: CALEB ALEX is a 59 year old male with a past medical history of coronary artery disease status post bypass graft, dyslipidemia, chronic anticoagulation, hypertension, tobacco and alcohol dependence. He presents to the emergency department referred by primary care for abnormal labs with a sodium of 126. Patient endorses generalized weakness but denies nausea vomiting headache blurred vision. Patient admits to excessive beer intake of between 6 and 824 ounce beers per day. He denies a history of alcohol withdrawal or tremor but he cannot recall his last abstinence greater than 24 hours. He denies recent change in medication regiment and is otherwise felt unchanged. Past Medical History Cardiac Medical History: Reports: Congestive Heart Failure, Coronary Artery Disease, Hypertension, Heart Murmur Denies: Atrial Fibrillation, Myocardial Infarction, Hyperlipidema, Peripheral Vascular Disease Pulmonary Medical History: Denies: Tuberculosis Endocrine Medical History: Denies: Diabetes Mellitus Type 2 Malignancy Medical History: Denies: Breast Cancer, Cervical Cancer, Ovarian Cancer Psychiatric Medical History: Reports: Alcohol Dependency, Tobacco Dependency Past Surgical History Past Surgical History: Reports: Cardiac Catheterization, Coronary Artery Bypass Graft, Vascular Surgery - DVT removal Denies: Appendectomy, Cholecystectomy, Gastric Bypass Surgery, Herniorrhaphy, Pacemaker, Tonsillectomy Social History Information Source: Patient Smoking Status: Current Every Day Smoker Frequency of Alcohol Use: Heavy Hx Recreational Drug Use: No Hx Prescription Drug Abuse: No - Advance Directive Resuscitation Status: Full Code Family History Family History: Malignancy Parental Family History Reviewed: Yes Children Family History Reviewed: Yes Sibling(s) Family History Reviewed.: Yes Medication/Allergy Home Medications: Atorvastatin Calcium [Lipitor 40 mg Tablet] 40 mg PO DAILY 05/10/11 Zolpidem Tartrate [Ambien 10 mg Tablet] 10 mg PO QHS 05/10/11 Acetaminophen [Tylenol 325 mg Tablet] 325 mg PO ASDIR PRN 10/20/18 Losartan Potassium [Cozaar 50 mg Tablet] 50 mg PO DAILY 10/20/18 Oxycodone HCl/Acetaminophen [Percocet 5-325 mg Tablet] 1 tab PO BIDP PRN 10/20/18 Rivaroxaban [Xarelto] 20 mg PO DAILY 10/20/18 Polymyxin B Sulf/Trimethoprim [Polytrim Eye Drops] 1 drop OD Q3H #10 ml 05/28/19 Allergies/Adverse Reactions: No Known Allergies Allergy (Verified 09/30/19 17:20) Review of Systems Constitutional: ABSENT: chills, fever(s), headache(s), weight gain, weight loss Eyes: ABSENT: visual disturbances Ears: ABSENT: hearing changes Cardiovascular: ABSENT: chest pain, dyspnea on exertion, edema, orthropnea, palpitations Respiratory: ABSENT: cough, hemoptysis Gastrointestinal: ABSENT: abdominal pain, constipation, diarrhea, hematemesis, hematochezia, nausea, vomiting Genitourinary: ABSENT: dysuria, hematuria Musculoskeletal: ABSENT: joint swelling Integumentary: ABSENT: rash, wounds Neurological: ABSENT: abnormal gait, abnormal speech, confusion, dizziness, focal weakness, syncope Psychiatric: ABSENT: anxiety, depression, homidical ideation, suicidal ideation Endocrine: ABSENT: cold intolerance, heat intolerance, polydipsia, polyuria Hematologic/Lymphatic: ABSENT: easy bleeding, easy bruising Physical Exam Vital Signs: Temp Pulse Resp BP Pulse Ox 98.1 F 88 16 124/79 97 10/01/19 01:10 10/01/19 01:10 10/01/19 01:10 10/01/19 01:10 10/01/19 01:10 Intake & Output 09/29/19 09/30/19 10/01/19 11:59 11:59 11:59 Intake Total 1251.2 Balance 1251.2 Weight 60.6 kg General appearance: PRESENT: cooperative, thin, well-developed. ABSENT: well- nourished Exam: Temporal wasting and global muscular atrophy Head exam: PRESENT: atraumatic, normocephalic Eye exam: PRESENT: conjunctiva pink, EOMI, PERRLA. ABSENT: scleral icterus Ear exam: PRESENT: normal external ear exam Mouth exam: PRESENT: moist, tongue midline Neck exam: ABSENT: carotid bruit, JVD, lymphadenopathy, thyromegaly Respiratory exam: PRESENT: clear to auscultation sarahy. ABSENT: rales, rhonchi, wheezes Cardiovascular exam: PRESENT: RRR, systolic murmur. ABSENT: diastolic murmur, rubs Pulses: PRESENT: normal dorsalis pedis pul Vascular exam: PRESENT: normal capillary refill GI/Abdominal exam: PRESENT: normal bowel sounds, soft. ABSENT: distended, guarding, mass, organolmegaly, rebound, tenderness Rectal exam: PRESENT: deferred Extremities exam: PRESENT: full ROM. ABSENT: calf tenderness, clubbing, pedal edema Neurological exam: PRESENT: alert, awake, oriented to person, oriented to place, oriented to time, oriented to situation, CN II-XII grossly intact. ABSENT: motor sensory deficit Psychiatric exam: PRESENT: flat affect, unusual affect Skin exam: PRESENT: dry, intact, warm. ABSENT: cyanosis, rash Results Laboratory Results: 09/30/19 19:52 09/30/19 21:52 09/30/19 09/30/19 09/30/19 17:46 17:55 19:52 WBC 6.3 RBC 3.72 L Hgb 12.1 L Hct 35.3 L MCV 95 MCH 32.5 MCHC 34.3 RDW 14.8 H Plt Count 228 Seg Neutrophils % 60.1 Sodium 124.7 L Potassium 4.3 Chloride 90 L Carbon Dioxide 21 L Anion Gap 14 BUN 15 Creatinine 1.36 H Est GFR ( Amer) > 60 Glucose 77 Calcium 9.5 Total Bilirubin 0.6 AST 28 Alkaline Phosphatase 49 Total Protein 8.3 H Albumin 4.6 Lipase 90.6 TSH Urine Color STRAW Urine Appearance CLEAR Urine pH 5.0 Ur Specific Coleman 1.005 Urine Protein NEGATIVE Urine Glucose (UA) NEGATIVE Urine Ketones NEGATIVE Urine Blood NEGATIVE Urine Nitrite NEGATIVE Ur Leukocyte Esterase NEGATIVE Urine WBC (Auto) 1 Urine RBC (Auto) 0 09/30/19 09/30/19 21:52 21:52 WBC RBC Hgb Hct MCV MCH MCHC RDW Plt Count Seg Neutrophils % Sodium 126.0 L Potassium 3.8 Chloride 94 L Carbon Dioxide 23 Anion Gap 9 BUN 13 Creatinine 1.31 H Est GFR ( Amer) > 60 Glucose 68 L Calcium 8.8 Total Bilirubin AST Alkaline Phosphatase Total Protein Albumin Lipase TSH 2.06 Urine Color Urine Appearance Urine pH Ur Specific Coleman Urine Protein Urine Glucose (UA) Urine Ketones Urine Blood Urine Nitrite Ur Leukocyte Esterase Urine WBC (Auto) Urine RBC (Auto) 09/30/19 21:52 NT-Pro-B Natriuret Pep 127 H Assessment and Plan - Diagnosis (1) Hyponatremia Is this a current diagnosis for this admission?: Yes Plan: Most likely secondary to beer Potomania, fluid restriction initiated. Follow-up serial chemistry every 8 hours. Goal correction maximum 136 in 24 hours (2) Generalized weakness Is this a current diagnosis for this admission?: Yes Plan: Likely secondary to general deconditioning. (3) Coronary artery disease Is this a current diagnosis for this admission?: Yes Plan: Telemetry monitoring, continue outpatient regiment (4) Alcohol dependence Is this a current diagnosis for this admission?: Yes Plan: Thiamine, folate, Valium and Ativan as needed, consider referral to outpatient rehab. Flat affect. Stating he just does not want to stay the night. Patient adamantly denies depression, suicidal or homicidal ideation. - Time Time Spent with patient: 25-34 minutes - Inpatient Certification Medical Necessity: Need Close Monitoring Due to Risk of Patient Decompensation
[2019-10-01 05:40] LABS: ANION GAP 7 (5-19); BLOOD UREA NITROGEN 14 mg/dL (7-20); CALCIUM 9.4 mg/dL (8.4-10.2); CARBON DIOXIDE 28 mmol/L (22-30); CHLORIDE 96 mmol/L (98-107); GLUCOSE 83 mg/dL (75-110); POTASSIUM 4.4 mmol/L (3.6-5.0)
[2019-10-01 14:46] LABS: ANION GAP 7 (5-19); BLOOD UREA NITROGEN 17 mg/dL (7-20); CALCIUM 9.6 mg/dL (8.4-10.2); CARBON DIOXIDE 26 mmol/L (22-30); CHLORIDE 99 mmol/L (98-107); GLUCOSE 105 mg/dL (75-110); POTASSIUM 4.3 mmol/L (3.6-5.0)
[2019-10-01] MEDS ORDERED: (PENDING PHARMACY ID) (Zolpidem Tartrate [Ambien] 10 MG) PO PRN (15:02)
--- NOTE | 2019-10-01 15:02 | PDOC PROGRESS REPORT ---
Subjective Progress Note for:: 10/01/19 Subjective:: As per admitting physician CALEB ALEX is a 59 year old male with a past medical history of coronary artery disease status post bypass graft, dyslipidemia, chronic anticoagulation, hypertension, tobacco and alcohol dependence. He presents to the emergency department referred by primary care for abnormal labs with a sodium of 126. Patient endorses generalized weakness but denies nausea vomiting headache blurred vision. Patient admits to excessive beer intake of between 6 and 824 ounce beers per day. He denies a history of alcohol withdrawal or tremor but he cannot recall his last abstinence greater than 24 hours. He denies recent change in medication regiment and is otherwise felt unchanged. 10/01/2019. No acute events overnight. Patient comfortably resting in bed no apparent distress. Alert and oriented cooperative with physical examination. D enies any fever, chills, nausea, vomiting, diarrhea, constipation or any urinary symptoms. Reason For Visit: HYPONATREMIA Physical Exam Vital Signs: Temp Pulse Resp BP Pulse Ox 99.2 F 62 16 138/79 H 100 10/01/19 11:00 10/01/19 11:00 10/01/19 11:00 10/01/19 11:00 10/01/19 11:00 Intake & Output 09/30/19 10/01/19 10/02/19 06:59 06:59 06:59 Intake Total 1301.2 240 Output Total 500 Balance 801.2 240 Weight 60.6 kg General appearance: PRESENT: no acute distress, well-developed, well-nourished Head exam: PRESENT: atraumatic, normocephalic Respiratory exam: PRESENT: clear to auscultation sarahy. ABSENT: rales, rhonchi, wheezes Cardiovascular exam: PRESENT: RRR. ABSENT: diastolic murmur, rubs, systolic murmur GI/Abdominal exam: PRESENT: normal bowel sounds, soft. ABSENT: distended, guarding, mass, organolmegaly, rebound, tenderness Neurological exam: PRESENT: alert, awake, oriented to person, oriented to place, CN II-XII grossly intact. ABSENT: motor sensory deficit Results Laboratory Results: 09/30/19 19:52 10/01/19 14:15 09/30/19 09/30/19 09/30/19 17:46 17:55 19:52 WBC 6.3 RBC 3.72 L Hgb 12.1 L Hct 35.3 L MCV 95 MCH 32.5 MCHC 34.3 RDW 14.8 H Plt Count 228 Seg Neutrophils % 60.1 Sodium 124.7 L Potassium 4.3 Chloride 90 L Carbon Dioxide 21 L Anion Gap 14 BUN 15 Creatinine 1.36 H Est GFR ( Amer) > 60 Glucose 77 Calcium 9.5 Total Bilirubin 0.6 AST 28 Alkaline Phosphatase 49 Total Protein 8.3 H Albumin 4.6 Lipase 90.6 TSH Urine Color STRAW Urine Appearance CLEAR Urine pH 5.0 Ur Specific [place] 1.005 Urine Protein NEGATIVE Urine Glucose (UA) NEGATIVE Urine Ketones NEGATIVE Urine Blood NEGATIVE Urine Nitrite NEGATIVE Ur Leukocyte Esterase NEGATIVE Urine WBC (Auto) 1 Urine RBC (Auto) 0 09/30/19 09/30/19 10/01/19 21:52 21:52 04:45 WBC RBC Hgb Hct MCV MCH MCHC RDW Plt Count Seg Neutrophils % Sodium 126.0 L 130.9 L Potassium 3.8 4.4 Chloride 94 L 96 L Carbon Dioxide 23 28 Anion Gap 9 7 BUN 13 14 Creatinine 1.31 H 1.37 H Est GFR ( Amer) > 60 > 60 Glucose 68 L 83 Calcium 8.8 9.4 Total Bilirubin AST Alkaline Phosphatase Total Protein Albumin Lipase TSH 2.06 Urine Color Urine Appearance Urine pH Ur Specific [place] Urine Protein Urine Glucose (UA) Urine Ketones Urine Blood Urine Nitrite Ur Leukocyte Esterase Urine WBC (Auto) Urine RBC (Auto) 10/01/19 14:15 WBC RBC Hgb Hct MCV MCH MCHC RDW Plt Count Seg Neutrophils % Sodium 131.6 L Potassium 4.3 Chloride 99 Carbon Dioxide 26 Anion Gap 7 BUN 17 Creatinine 1.48 H Est GFR ( Amer) 59 L Glucose 105 Calcium 9.6 Total Bilirubin AST Alkaline Phosphatase Total Protein Albumin Lipase TSH Urine Color Urine Appearance Urine pH Ur Specific [place] Urine Protein Urine Glucose (UA) Urine Ketones Urine Blood Urine Nitrite Ur Leukocyte Esterase Urine WBC (Auto) Urine RBC (Auto) 09/30/19 21:52 NT-Pro-B Natriuret Pep 127 H Assessment and Plan - Diagnosis (1) Hyponatremia Is this a current diagnosis for this admission?: Yes Plan: Most likely secondary to beer Potomania, fluid restriction initiated. Follow-up serial chemistry every 8 hours. Goal correction maximum 136 in 24 hours (2) Alcohol dependence Is this a current diagnosis for this admission?: Yes Plan: Thiamine, folate, Valium and Ativan as needed, consider referral to outpatient rehab. Flat affect. Stating he just does not want to stay the night. Patient adamantly denies depression, suicidal or homicidal ideation. (3) Generalized weakness Is this a current diagnosis for this admission?: Yes Plan: Likely secondary to general deconditioning. (4) Coronary artery disease Is this a current diagnosis for this admission?: Yes Plan: Telemetry monitoring, continue outpatient regiment
[2019-10-01] MEDS ORDERED: ZOLPIDEM TARTRATE 5 MG TABLET PO PRN (15:08)
[2019-10-01] MEDS ORDERED: RIVAROXABAN 10 MG TABLET PO SCH (17:00)
[2019-10-01] MEDS: OXYCODONE-ACETAMINOPHEN 5-325 MG TABLET PO SCH (21:48)
[2019-10-01] MEDS ORDERED: ATORVASTATIN CALCIUM 40 MG TABLET PO SCH (22:00)
[2019-10-01 22:30] LABS: ANION GAP 8 (5-19); BLOOD UREA NITROGEN 21 mg/dL (7-20); CALCIUM 9.4 mg/dL (8.4-10.2); CARBON DIOXIDE 23 mmol/L (22-30); CHLORIDE 101 mmol/L (98-107); GLUCOSE 92 mg/dL (75-110); POTASSIUM 4.3 mmol/L (3.6-5.0)
[2019-10-02] MEDS ORDERED: THIAMINE HCL 100 MG TABLET PO SCH (10:00)
[2019-10-02] MEDS ORDERED: HYDROCHLOROTHIAZIDE 12.5 MG TABLET PO SCH (10:00)
[2019-10-02] MEDS ORDERED: (PENDING PHARMACY ID) (Losartan/Hydrochlorothiazide [Losartan-Hctz 50-12.5 Mg Tab] 1 TAB) PO SCH (10:00)
[2019-10-02] MEDS ORDERED: THIAMINE HCL 100 MG, FOLIC ACID 1 MG in NORMAL SALINE 250 ML IV SCH (10:00)
[2019-10-02] MEDS ORDERED: LOSARTAN POTASSIUM 50 MG TABLET PO SCH (10:00)
[2019-10-02 10:32] LABS: ANION GAP 8 (5-19); BLOOD UREA NITROGEN 17 mg/dL (7-20); CALCIUM 9.8 mg/dL (8.4-10.2); CARBON DIOXIDE 25 mmol/L (22-30); CHLORIDE 101 mmol/L (98-107); GLUCOSE 117 mg/dL (75-110); POTASSIUM 3.7 mmol/L (3.6-5.0)
[2019-10-02 11:18] VITALS: BP 138/78
[2019-10-02] MEDS: OXYCODONE-ACETAMINOPHEN 5-325 MG TABLET PO SCH (12:03)
--- NOTE | 2019-10-02 14:22 | PDOC DISCHARGE SUMMARY ---
Impression - Admit/DC Date/PCP Admission Date/Primary Care Provider: 09/30/19 22:35 VARUN BLUM PA-C Discharge Date: 10/02/19 - Discharge Diagnosis (1) Hyponatremia Is this a current diagnosis for this admission?: Yes (2) Alcohol dependence Is this a current diagnosis for this admission?: Yes (3) Generalized weakness Is this a current diagnosis for this admission?: Yes (4) Coronary artery disease Is this a current diagnosis for this admission?: Yes - Additional Information Resuscitation Status: Full Code Discharge Diet: As Tolerated Discharge Activity: Activity As Tolerated Referrals: LEOPOLDO THOMAS MD [ACTIVE STAFF] - 10/13/19 2:00 pm Home Medications: Atorvastatin Calcium [Lipitor 40 mg Tablet] 40 mg PO QHS 10/01/19 Losartan/Hydrochlorothiazide [Losartan-Hctz 50-12.5 mg Tab] 1 tab PO DAILY 10/01/19 Oxycodone HCl/Acetaminophen [Percocet 5-325 mg Tablet] 1 tab PO Q12 10/01/19 Rivaroxaban [Xarelto] 20 mg PO DAILY 10/01/19 Zolpidem Tartrate [Ambien] 10 mg PO HSP PRN 10/01/19 History of Present Illiness History of Present Illness: As per admitting physician CALEB ALEX is a 59 year old male with a past medical history of coronary artery disease status post bypass graft, dyslipidemia, chronic anticoagulation, hypertension, tobacco and alcohol dependence. He presents to the emergency department referred by primary care for abnormal labs with a sodium of 126. Patient endorses generalized weakness but denies nausea vomiting headache blurred vision. Patient admits to excessive beer intake of between 6 and 824 ounce beers per day. He denies a history of alcohol withdrawal or tremor but he cannot recall his last abstinence greater than 24 hours. He denies recent change in medication regiment and is otherwise felt unchanged. Hospital Course Hospital Course: (1) Hyponatremia Resolved. Most likely secondary to beer Potomania. Started on fluid restriction with sodium slowly trending up. BMP follow-up every 8 hours. Did not have any seizure during hospitalization. (2) Alcohol dependence Was advised on abstinence. Was restarted on thiamine, folate, Valium and Ativan as needed. No sign or symptoms of active withdrawal during hospitalization. Flat affect. Stating he just does not want to stay the night. Patient bridgettantly denies depression, suicidal or homicidal ideation. (3) Generalized weakness Improved. Fall and seizure precautions were instituted. Likely secondary to general deconditioning. (4) Coronary artery disease Denied any chest pain. Home meds were resumed. Physical Exam Vital Signs: Temp Pulse Resp BP Pulse Ox 98.6 F 76 17 138/78 H 100 10/02/19 11:17 10/02/19 11:17 10/02/19 11:17 10/02/19 11:17 10/02/19 11:17 Intake & Output 10/01/19 10/02/19 10/03/19 06:59 06:59 06:59 Intake Total 1301.2 360 Output Total 500 Balance 801.2 360 Weight 60.6 kg 61.2 kg General appearance: PRESENT: no acute distress, well-developed, well-nourished Head exam: PRESENT: atraumatic, normocephalic Respiratory exam: PRESENT: clear to auscultation sarahy. ABSENT: rales, rhonchi, wheezes Cardiovascular exam: PRESENT: RRR. ABSENT: diastolic murmur, rubs, systolic murmur GI/Abdominal exam: PRESENT: normal bowel sounds, soft. ABSENT: distended, guarding, mass, organolmegaly, rebound, tenderness Neurological exam: PRESENT: alert, awake, oriented to person, oriented to place, oriented to time, oriented to situation, CN II-XII grossly intact. ABSENT: motor sensory deficit Skin exam: PRESENT: dry, intact, warm. ABSENT: cyanosis, rash Results Laboratory Results: WBC 6.3 10^3/uL (4.0-10.5) 09/30/19 19:52 RBC 3.72 10^6/uL (4.35-5.55) L 09/30/19 19:52 Hgb 12.1 g/dL (13.5-17.0) L 09/30/19 19:52 Hct 35.3 % (37.9-51.0) L 09/30/19 19:52 MCV 95 fl (80-97) 09/30/19 19:52 MCH 32.5 pg (27.0-33.4) 09/30/19 19:52 MCHC 34.3 g/dL (32.0-36.0) 09/30/19 19:52 RDW 14.8 % (11.5-14.0) H 09/30/19 19:52 Plt Count 228 10^3/uL (150-450) 09/30/19 19:52 Lymph % (Auto) 26.1 % (13-45) 09/30/19 19:52 [place] % (Auto) 11.3 % (3-13) 09/30/19 19:52 Eos % (Auto) 2.0 % (0-6) 09/30/19 19:52 Baso % (Auto) 0.5 % (0-2) 09/30/19 19:52 Absolute Neuts (auto) 3.8 10^3/uL (1.7-8.2) 09/30/19 19:52 Absolute Lymphs (auto) 1.6 10^3/uL (0.5-4.7) 09/30/19 19:52 Absolute Monos (auto) 0.7 10^3/uL (0.1-1.4) 09/30/19 19:52 Absolute Eos (auto) 0.1 10^3/uL (0.0-0.6) 09/30/19 19:52 Absolute Basos (auto) 0.0 10^3/uL (0.0-0.2) 09/30/19 19:52 Seg Neutrophils % 60.1 % (42-78) 09/30/19 19:52 Sodium 134.4 mmol/L (137-145) L 10/02/19 09:38 Potassium 3.7 mmol/L (3.6-5.0) 10/02/19 09:38 Chloride 101 mmol/L (98-107) 10/02/19 09:38 Carbon Dioxide 25 mmol/L (22-30) 10/02/19 09:38 Anion Gap 8 (5-19) 10/02/19 09:38 BUN 17 mg/dL (7-20) 10/02/19 09:38 Creatinine 1.48 mg/dL (0.52-1.25) H 10/02/19 09:38 Est GFR ( Amer) 59 (>60) L 10/02/19 09:38 Est GFR (MDRD) Non-Af 48 (>60) L 10/02/19 09:38 Glucose 117 mg/dL (75-110) H 10/02/19 09:38 POC Glucose 99 mg/dL (70-110) 10/02/19 06:09 Calcium 9.8 mg/dL (8.4-10.2) 10/02/19 09:38 Total Bilirubin 0.6 mg/dL (0.2-1.3) 09/30/19 17:55 Direct Bilirubin 0.0 mg/dL (0.0-0.4) 09/30/19 17:55 Neonat Total Bilirubin Not Reportable 09/30/19 17:55 Neonat Direct Bilirubin Not Reportable 09/30/19 17:55 Neonat Indirect Bili Not Reportable 09/30/19 17:55 AST 28 U/L (17-59) 09/30/19 17:55 ALT 15 U/L (<50) 09/30/19 17:55 Alkaline Phosphatase 49 U/L (38-126) 09/30/19 17:55 NT-Pro-B Natriuret Pep 127 pg/mL (<125) H 09/30/19 21:52 Total Protein 8.3 g/dL (6.3-8.2) H 09/30/19 17:55 Albumin 4.6 g/dL (3.5-5.0) 09/30/19 17:55 Lipase 90.6 U/L (23-300) 09/30/19 17:55 TSH 2.06 uIU/mL (0.47-4.68) 09/30/19 21:52 Urine Color STRAW 09/30/19 17:46 Urine Appearance CLEAR 09/30/19 17:46 Urine pH 5.0 (5.0-9.0) 09/30/19 17:46 Ur Specific [place] 1.005 09/30/19 17:46 Urine Protein NEGATIVE mg/dL (NEGATIVE) 09/30/19 17:46 Urine Glucose (UA) NEGATIVE mg/dL (NEGATIVE) 09/30/19 17:46 Urine Ketones NEGATIVE mg/dL (NEGATIVE) 09/30/19 17:46 Urine Blood NEGATIVE (NEGATIVE) 09/30/19 17:46 Urine Nitrite NEGATIVE (NEGATIVE) 09/30/19 17:46 Urine Bilirubin NEGATIVE (NEGATIVE) 09/30/19 17:46 Urine Urobilinogen NEGATIVE mg/dL (<2.0) 09/30/19 17:46 Ur Leukocyte Esterase NEGATIVE (NEGATIVE) 09/30/19 17:46 Urine WBC (Auto) 1 /HPF 09/30/19 17:46 Urine RBC (Auto) 0 /HPF 09/30/19 17:46 Squamous Epi Cells Auto 1 /HPF 09/30/19 17:46 Urine Mucus (Auto) RARE /LPF 09/30/19 17:46 Urine Ascorbic Acid NEGATIVE (NEGATIVE) 09/30/19 17:46 09/30/19 21:52 NT-Pro-B Natriuret Pep 127 H Stroke Is this a Stroke Patient?: No Acute Heart Failure - Is this a Heart Failure Patient?: No
== END 2019-10-02 12:28 | disposition home or self-care (01) ==
LOC: ER 16:12 → EH 22:35 → 4W 10-01 01:05
PROVIDERS: ADMIT Internal Medicine; ATTEND Internal Medicine
DX: E87.1 Hypo-osmolality and hyponatremia (principal); F10.20 Alcohol dependence, uncomplicated; R53.1 Weakness; I25.10 Atherosclerotic heart disease of native coronary artery without angina pectoris; E78.5 Hyperlipidemia, unspecified; I12.9 Hypertensive chronic kidney disease with stage 1 through stage 4 chronic kidney disease, or unspecified chronic kidney disease; N18.9 Chronic kidney disease, unspecified; M62.58 Muscle wasting and atrophy, not elsewhere classified, other site; I25.2 Old myocardial infarction; F17.210 Nicotine dependence, cigarettes, uncomplicated; Z86.718 Personal history of other venous thrombosis and embolism; Z79.899 Other long term (current) drug therapy; Z79.01 Long term (current) use of anticoagulants; Z95.1 Presence of aortocoronary bypass graft; Z98.890 Other specified postprocedural states
CPT/HCPCS: 99283; 96360; 36415 ×3; 82962 ×2; 83690; 84443; 85025; 80048 ×2; 80053; 81001; 83880; G0378 ×4; A9270 ×7; J3490; J7030; J3411; J7050

== ENCOUNTER → 2020-01-08 | Outpatient (CLI) | payer MEDICARE, MEDICAID ==
[2020-01-08 11:01] LABS: ABSOLUTE EOSINOPHILS # (AUTO) 0.1 10^3/uL (0.0-0.6); ABSOLUTE LYMPHOCYTES (AUTO) 0.7 10^3/uL (0.5-4.7); ABSOLUTE MONOCYTES (AUTO) 0.7 10^3/uL (0.1-1.4); ABSOLUTE NEUT (AUTO) 5.4 10^3/uL (1.7-8.2); BASOPHILS % (AUTO) 0.4 % (0-2); HEMATOCRIT 40.2 % (37.9-51.0); HEMOGLOBIN 13.6 g/dL (13.5-17.0); LYMPHOCYTES % (AUTO) 10.4 % (13-45); MEAN CORPUSCULAR HEMOGLOBIN 32.4 pg (27.0-33.4); MEAN CORPUSCULAR HGB CONC 33.8 g/dL (32.0-36.0); MEAN CORPUSCULAR VOLUME 96 fl (80-97); MONOCYTES % (AUTO) 10.3 % (3-13); PLATELET COUNT 233 10^3/uL (150-450); SEGMENTED NEUTROPHILS % (AUTO) 76.9 % (42-78); TOTAL CELLS COUNTED % (AUTO) 100 %; WHITE BLOOD COUNT 7.1 10^3/uL (4.0-10.5)
[2020-01-08 11:21] LABS: ALBUMIN 4.6 g/dL (3.5-5.0); ALKALINE PHOSPHATASE 65 U/L (38-126); ANION GAP 12 (5-19); ASPARTATE AMINO TRANSFERASE 38 U/L (17-59); BILIRUBIN,DIRECT 0.3 mg/dL (0.0-0.4); BLOOD UREA NITROGEN 19 mg/dL (7-20); CALCIUM 9.7 mg/dL (8.4-10.2); CARBON DIOXIDE 23 mmol/L (22-30); CHLORIDE 100 mmol/L (98-107); CHOLESTEROL 170.23 mg/dL (0-200); GLUCOSE 103 mg/dL (75-110); POTASSIUM 4.8 mmol/L (3.6-5.0); TOTAL PROTEIN 8.1 g/dL (6.3-8.2); TRIGLYCERIDES 104 mg/dL (<150)
[2020-01-08 11:33] LABS: DIRECT LDL 68 mg/dL (<100)
[2020-01-08 11:36] LABS: FREE T4 (FREE THYROXINE) 1.07 ng/dL (0.78-2.19)
[2020-01-08 11:50] LABS: THYROID STIMULATING HORMONE 5.56 uIU/mL (0.47-4.68)
[2020-01-09 13:30] LABS: PROSTATE SPECIFIC ANTIGEN 0.5 ng/mL (0.0-4.0); PSA FREE 0.28 ng/mL
== END ==
LOC: OD 10:00
PROVIDERS: ATTEND Internal Medicine
DX: E78.2 Mixed hyperlipidemia (principal); R73.01 Impaired fasting glucose
CPT/HCPCS: 36415; 80053; 80061; 82306; 83036; 84154; 84439; 84443; 85025